=== PATIENT | male | born 2000 | race Two or more races ===

== ENCOUNTER 2019-04-23 18:44 | Emergency (ER) | payer OTHER ==
[~2019-04-23] VITALS: Ht 180.3 cm; Wt 79.5 kg
[2019-04-23] MEDS ORDERED: OSEL75 PO (18:52)
[2019-04-23] MEDS ORDERED: ACET-66 PO (18:52)
[2019-04-23] MEDS ORDERED: CEPH250 PO (18:52)
[2019-04-23] MEDS ORDERED: AMIT50TA3 PO (18:52)
[2019-04-24 00:01] LABS: APPEARANCE,URINE CLEAR (CLEAR); BILIRUBIN,URINE NEGATIVE (NEGATIVE); GLUCOSE, URINE (UA) NEGATIVE (NEGATIVE); KETONES,URINE NEGATIVE (NEGATIVE); LEUKOCYTE ESTERASE ,URINE NEGATIVE (NEGATIVE); NITRATE,URINE NEGATIVE (NEGATIVE); OCCULT BLOOD,URINE NEGATIVE (NEGATIVE); PROTEIN,URINE NEGATIVE (NEGATIVE); UROBILINOGEN,URINE 0.2 mg/dL (<=1.0)
[2019-04-24 00:05] VITALS: BP 120/68
== END 2019-04-24 00:22 | disposition home or self-care (01) ==
LOC: EMS 18:46
DX: G47.00 Insomnia, unspecified (principal); F41.9 Anxiety disorder, unspecified; R35.0 Frequency of micturition